=== PATIENT | female | born 1985 | race Hispanic/Latino ===

== ENCOUNTER 2018-01-15 11:27 | Emergency (ER) | payer BC ==
[~2018-01-15] VITALS: Ht 162.6 cm; Wt 70.3 kg
[2018-01-15] MEDS: SODIUM CHLORIDE 0.9% 1000ML 1,000 ML ONE (12:15)
[2018-01-15] MEDS: PROMETHAZINE HCL (IM) 25 MG/ML VIAL IM ONE (12:15)
[2018-01-15] MEDS: MECLIZINE HCL 12.5 MG TAB PO ONE (13:25)
[2018-01-15] MEDS: KETOROLAC TROMETHAMINE 30 MG/ML VIAL IV ONE (13:47)
[2018-01-15] MEDS ORDERED: MECLIZINE HCL12.5 MG PO (13:53)
[2018-01-15 14:04] VITALS: BP 122/78
== END 2018-01-15 14:05 | disposition home or self-care (01) ==
LOC: FSED 11:27
DX: R42 Dizziness and giddiness (principal)
CPT/HCPCS: 93005; 99284; J1885; J2550; J7030